=== PATIENT | male | born 1985 | race Caucasian/White ===

== ENCOUNTER 2016-07-09 01:05 | Emergency (ER) | payer BC, OTHER ==
[2016-07-09 01:18] VITALS: BP 118/46
[2016-07-09] MEDS ORDERED: Dicyclomine 10 MG Cap PO ONE (01:19)
--- NOTE | 2016-07-09 02:24 | EDM.PDOC ---
ED HPI GI/ABDOMINAL - General Chief Complaint: Abdominal Pain Stated Complaint: ADBOMAINAL PAIN Time Seen by Provider: 07/09/16 01:17 Source of Information: Reports: Patient History Limitations: Reports: No limitations - History of Present Illness INITIAL COMMENTS - FREE TEXT/NARRATIVE: 31-year-old male presents to the ED with left lower quadrant abdominal pain off and on for the better part of 2 weeks. He states it just worse tonight after going to the ED. We'll the patient is intoxicated by alcohol. States he is rectal pain and discomfort without any bleeding per rectum. Bowel movements have been somewhat painful. No palpable swelling at the rectum. No known hemorrhoids. No nausea or vomiting. No previous abdominal surgery. Symptom Onset Date: 06/07/16 Timing/Duration: Reports: Week(s):, Getting worse (Worse tonight.), Waxing/ waning Location: LLQ Quality: Reports: fullness, stabbing Severity: moderate (Rates it a 5/10.) Improves with: Reports: other Context: Denies: sick contact (Nothing seems to make it better or worse.), bad/ questionable food, out of country travel, recent surgery, recent trauma, lifting , activity/exercise, other Associated Symptoms: Reports: fever/chills, loss of appetite. Denies: denies other symptoms, chest pain, back pain, testicular pain, groin pain, shoulder pain, constipation, diarrhea, bloody stools, nausea/vomiting, other Treatments [employer]: Reports: Other (see below) (None) Social & Family History - Alcohol Use Alcohol Use History: Yes Days Per Week of Alcohol Use: 5 ED ROS GENERAL - Review of Systems Review Of Systems: See Below Constitutional: Denies: fever, chills, malaise, weakness, fatigue, night sweats , diaphoresis, decreased appetite, weight loss, weight gain HEENT: Reports: No symptoms Respiratory: Reports: Cough (Chronic nonproductive cough.). Denies: Shortness of Breath, Wheezing, Pleuritic Chest Pain Cardiovascular: Reports: No symptoms Endocrine: Reports: no symptoms GI/Abdominal: Reports: Abdominal pain (See history of present illness), Other ( Rectal pain without any rectal bleeding.). Denies: Decreased appetite, Flatus, Hematemesis, Hematochezia : Reports: no symptoms Musculoskeletal: Reports: no symptoms Skin: Reports: no symptoms Neurological: Reports: No Symptoms ED EXAM, GI/ABD - Physical Exam Exam: See Below Exam Limited By: Intoxication (He is moderately intoxicated by alcohol.) General Appearance: alert, no apparent distress Eyes: bilateral: nystagmus (Mild bilateral) Throat/Mouth: Normal inspection, Normal lips, Normal teeth, Normal oropharynx, Other Head: atraumatic (Breasts no strongly of alcohol.), normocephalic Neck: normal inspection, supple, non-tender, full range of motion. No: lymphadenopathy (L), lymphadenopathy (R) Respiratory/Chest: no respiratory distress, lungs clear, normal breath sounds, no accessory muscle use, chest non-tender Cardiovascular: normal peripheral pulses, regular rate, rhythm, no edema, no gallop, no murmur GI/Abdominal: normal bowel sounds, soft, tenderness (Over the left lower quadrant in the distribution of the sigmoid colon. Mild guarding. No rebound.). No: McBurney's sign, psoas sign, Rovsing's sign, Orozco's sign, aortic pulsation (Male) Exam: No hernia Back Exam: normal inspection, full range of motion. No: CVA tenderness (L), CVA tenderness (R) Extremities: normal inspection, normal range of motion, non-tender, no pedal edema, normal capillary refill Neurological: alert, oriented, normal cognition Psychiatric: normal affect Skin Exam: Warm, Dry, Intact, Normal color, No rash Course - Vital Signs Last Recorded V/S: Last Vital Signs Temp 36.5 C 07/09/16 01:14 Pulse 88 07/09/16 01:14 Resp 18 07/09/16 01:14 BP 118/46 L 07/09/16 01:14 Pulse Ox 96 07/09/16 01:14 - Orders/Labs/Meds Labs: Laboratory Tests 07/09/16 07/09/16 07/09/16 Range/Units 01:30 01:30 01:45 WBC 5.90 (4.23-9.07) K/mm3 RBC 4.86 (4.63-6.08) M/mm3 Hgb 15.3 (13.7-17.5) gm/L Hct 44.3 (40.1-51.0) % MCV 91.2 (79.0-92.2) fl MCH 31.5 (25.7-32.2) pg MCHC 34.5 (32.2-35.5) g/dl RDW Std Deviation 42.8 (35.1-43.9) fL Plt Count 242 (163-337) K/mm3 MPV 10.3 (9.4-12.3) fl Neutrophils % (Manual) 49 (40-60) % Band Neutrophils % 0 (0-10) % Lymphocytes % (Manual) 45 H (20-40) % Atypical Lymphs % 0 % Monocytes % (Manual) 3 (2-10) % Eosinophils % (Manual) 2 (0.8-7.0) % Basophils % (Manual) 1 (0.2-1.2) Platelet Estimate Adequate Plt Morphology Comment Normal RBC Morph Comment Normal Sodium 142 (136-145) mEq/L Potassium 4.3 (3.5-5.1) mEq/L Chloride 106 (98-107) mEq/L Carbon Dioxide 25 (21-32) mEq/L Anion Gap 15.3 H (5-15) BUN 12 (7-18) mg/dL Creatinine 1.0 (0.7-1.3) mg/dL Est Cr Clr Drug Dosing 98.66 mL/min Estimated GFR (MDRD) > 60 (>60) mL/min BUN/Creatinine Ratio 12.0 L (14-18) Glucose 97 (74-106) mg/dL Calcium 8.6 (8.5-10.1) mg/dL Total Bilirubin 0.2 (0.2-1.0) mg/dL AST 19 (15-37) U/L ALT 33 (16-63) U/L Alkaline Phosphatase 64 (46-116) U/L C-Reactive Protein < 0.2 (<1.0) mg/dL Total Protein 7.7 (6.4-8.2) g/dl Albumin 4.3 (3.4-5.0) g/dl Globulin 3.4 gm/dL Albumin/Globulin Ratio 1.3 (1-2) Lipase 181 (73-393) U/L Urine Color Yellow (Yellow) Urine Appearance Clear (Clear) Urine pH 6.0 (5.0-8.0) Ur Specific [place] 1.010 (1.005-1.030) Urine Protein Negative (Negative) Urine Glucose (UA) Negative (Negative) Urine Ketones Negative (Negative) Urine Occult Blood Negative (Negative) Urine Nitrite Negative (Negative) Urine Bilirubin Negative (Negative) Urine Urobilinogen 0.2 (0.2-1.0) Ur Leukocyte Esterase Negative (Negative) Urine RBC Not seen (0-5) /hpf Urine WBC Not seen (0-5) /hpf Ur Epithelial Cells 0-5 (0-5) /hpf Urine Bacteria Rare (FEW) /hpf Urine Mucus Not seen (FEW) /hpf Urine Yeast Not seen (NOT SEEN) Meds: Medications Discontinued Medications Generic Name Dose Route Start Last Admin Trade Name Cosme PRN Reason Stop Dose Admin Dicyclomine HCl 20 mg 07/09/16 01:19 07/09/16 01:42 Bentyl PO 07/09/16 01:20 20 mg ONETIME ONE Administration Magnesium Citrate 240 ml 07/09/16 02:29 07/09/16 02:30 Citrate Of Magnesia PO 07/09/16 02:30 240 ml ONETIME ONE Administration - Radiology Interpretation Free Text/Narrative:: 31-year-old male presents the ED with diffuse left lower quadrant abdominal pain of 2 weeks' duration. Pain tends to wax and wane characteristic of a colicky component. States his bowel function has been normal without blood. He is also reports rectal pressure discomfort. Without any bleeding. Rates the pain as 5-6/10. Plan IV normal saline at 150 mils per hour. KUB to be done routine labs to be done. - Re-Assessments/Exams Free Text/Narrative Re-Assessment/Exam: 07/09/16 02:15: Labs have returned revealing a normal white count of 5.90 normal differential. Hemoglobin is good platelets normal. Chemistry is completely normal including a lipase of 181. Urinalysis came back negative as well. KUB reveals increased stool throughout the colon particularly in the left hemicolon and rectal vault. Treatment therefore will be Citroma recommended 8 ounces per hour with 4-5 ounces of juice of choice later this morning. This should provide bowel clans relief of abdominal pain. If not he is to return to medical care. Departure - Departure Time of Disposition: 02:28 Disposition: Home, Self-Care 01 Condition: fair Clinical Impression: Abdominal pain Qualifiers: Abdominal location: left lower quadrant Qualified Code(s): R10.32 - Left lower quadrant pain Instructions: Abdominal Pain, Adult, [id number] Referrals: PCP,None [Primary Care Provider] - Forms: ED Department Discharge Additional Instructions: Evaluation in the emergency room tonight in regards to recurrent left lower quadrant abdominal pain off and on for the last 2 weeks. Pain was worse tonight with sharp stabbing crampy pain. No previous abdominal surgery. Work done reveals no signs of any infection of the large bowel or colon. An x-ray of the abdomen reveals increased stool throughout the right hemicolon and into the right hemicolon with a large ball of gas in the left lower quadrant. This is what is causing your pain is causing him intermittent recurrent basis because the bowel is having difficulty emptying L. completely. Stool is not normally formed up on the right side of the abdomen only on the left side. It's not that you have not been moving her bowels regularly but it is back up on you on the right side sometime over the last 3 weeks. Treatment is to take oral Citroma 8 ounces of the 10 ounce bottle that you were provided to the ED tonight. Take this with about 4 ounces of juice mixed in it and directed down fairly promptly it will start to work in one to 2 hours and her bowels will tend to work for 5 times in the loose stool or some diarrhea. He will cleanse the bowel also but it relieves her pain. He may otherwise eat and drink as per normal. Return to medical care if still having abdominal pain after bowel cleanse.
[2016-07-09] MEDS ORDERED: Magnesium Citrate Solution 296 ML Bottle PO ONE (02:29)
--- NOTE | 2016-07-09 17:45 | CR ---
Abdomen: Supine view of the abdomen was obtained. Bowel gas pattern appears within normal limits. Mild scoliosis is noted within the spine. No abnormal calcifications or soft tissue abnormality is identified. Impression: 1. Nothing acute is identified on supine abdominal x-ray. Diagnostic code #2
== END 2016-07-09 02:40 | disposition home or self-care (01) ==
LOC: JD.ED 01:05
DX: R10.32 Left lower quadrant pain (principal)
CPT/HCPCS: 36415; 74000; 80053; 81001; 83690; 85025; 86140; 99284; A9270; 99283

== ENCOUNTER 2017-01-27 23:10 | Emergency (ER) | payer OTHER ==
[2017-01-27] MEDS ORDERED: Lidocaine 1% 10 ML MDV INJECT ONE (23:19)
[2017-01-27 23:22] VITALS: BP 118/80
[2017-01-27] MEDS ORDERED: Diphtheria,Pertussis(Acell),Tetanus Vaccine 0.5 ML SDV IM ONE (23:23)
--- NOTE | 2017-01-27 23:35 | EDM.PDOC ---
ED HPI GENERAL MEDICAL PROBLEM - General Chief Complaint: Laceration Stated Complaint: LACERATION TO CHIN Time Seen by Provider: 01/27/17 23:32 Source of Information: Reports: Patient History Limitations: Reports: No Limitations - History of Present Illness INITIAL COMMENTS - FREE TEXT/NARRATIVE: This is a 31-year-old male. He was drinking some this evening and went outside apparently slipped and fell landing on his jaw and he has a laceration to the jaw area. There was no loss of consciousness he denies any neck pain denies any headache denies any tooth injury and denies any other acute symptoms. He is not up-to-date with his tetanus. He is here for the laceration to be repaired. - Related Data Allergies Allergy/AdvReac Type Severity Reaction Status Date / Time No Known Allergies Allergy Verified 01/27/17 23:19 Home Meds: Home Meds . [No Known Home Meds] 01/27/17 [History] Past Medical History - Past Health History Medical/Surgical History: Denies Medical/Surgical History - Past Surgical History Musculoskeletal Surgical History: Reports: Arthroscopic Knee Social & Family History - Family History Family Medical History: Noncontributory - Tobacco Use Smoking Status *Q: Current Every Day Smoker Years of Tobacco use: 6 Packs/Tins Daily: 0.1 - Caffeine Use Caffeine Use: Reports: None - Alcohol Use Days Per Week of Alcohol Use: 5 - Recreational Drug Use Recreational Drug Use: No ED ROS GENERAL - Review of Systems Review Of Systems: See Below Constitutional: Denies: Fever, Chills HEENT: Reports: Other (As per history of present illness) Respiratory: Reports: No Symptoms Cardiovascular: Reports: No Symptoms Endocrine: Reports: No Symptoms GI/Abdominal: Reports: No Symptoms : Reports: No Symptoms Musculoskeletal: Reports: No Symptoms Skin: Reports: Other (As per history of present illness) Neurological: Reports: No Symptoms Psychiatric: Reports: No Symptoms Hematologic/Lymphatic: Reports: No Symptoms ED EXAM, SKIN/RASH Exam: See Below Exam Limited By: Other (slight alcohol on board) General Appearance: Alert, WD/WN, No Apparent Distress Eye Exam: Bilateral Eye: Normal Inspection Ears: Normal External Exam Nose: Normal Inspection Throat/Mouth: Normal Inspection, Normal Lips, Normal Voice Head: Normocephalic, Other (On his left point of his chin he's got about a centimeter laceration noted that is gapping ) Neck: Normal Inspection, Supple Respiratory/Chest: No Respiratory Distress, Lungs Clear Cardiovascular: Regular Rate, Rhythm, No Murmur Back Exam: Full Range of Motion Extremities: Normal Inspection, Normal Range of Motion Neurological: Alert, Oriented Psychiatric: Normal Affect, Normal Mood Skin: Warm, Dry ED SKIN PROCEDURES - Laceration/Wound Repair Face Lac/Wound length In cm: 1.2 (Left point of chin) Appearance: Subcutaneous Distal NVT: Neuro & Vascular Intact Anesthetic Type: Local Local Anesthesia - Lidocaine (Xylocaine): 1% Plain Local Anesthetic Volume: 4cc Skin Prep: Providone-Iodine (Betadine), Saline Exploration/Debridement/Repair: Wound Explored Closed with: Sutures Suture Size: other (6-0) # of Sutures: 4 Suture Type: Running Drain Placement: No Sterile Dressing Applied: Nurse Tetanus Status Addressed: Yes Complications: No Progress/Comments: Patient tolerated the procedure well Course - Vital Signs Last Recorded V/S: Last Vital Signs Temp 97.9 F 01/27/17 23:19 Pulse 85 01/27/17 23:19 Resp 18 01/27/17 23:19 BP 118/80 01/27/17 23:19 Pulse Ox 97 01/27/17 23:19 - Orders/Labs/Meds Orders: Active Orders 24 hr Category Date Time Status Vaccines to be Administered [RC] PER UNIT ROUTINE Care 01/27/17 23:24 Active Meds: Medications Discontinued Medications Generic Name Dose Route Start Last Admin Trade Name Freq PRN Reason Stop Dose Admin Diphtheria/Tetanus/Acell Pertussis 0.5 ml 01/27/17 23:23 Adacel IM 01/27/17 23:24 .ONCE ONE Lidocaine HCl 10 ml 01/27/17 23:19 Xylocaine 1% INJECT 01/27/17 23:20 ONETIME ONE Departure - Departure Time of Disposition: 23:51 Disposition: Home, Self-Care 01 Condition: Good Clinical Impression: Laceration of chin Qualifiers: Encounter type: initial encounter Qualified Code(s): S01.81XA - Laceration without foreign body of other part of head, initial encounter - Discharge Information Instructions: Laceration Care, Adult, [id number] Referrals: PCP,None [Primary Care Provider] - Forms: ED Department Discharge Additional Instructions: Watch for infection which would be redness swelling or increased drainage, in 7 days come back to the ER or go to the walk-in clinic here at the hospital for suture removal, if there is any problems in the meantime return to the ER - My Orders Last 24 Hours: My Active Orders 01/27/17 23:24 Vaccines to be Administered [RC] PER UNIT ROUTINE - Assessment/Plan Last 24 Hours: My Active Orders 01/27/17 23:24 Vaccines to be Administered [RC] PER UNIT ROUTINE
== END 2017-01-27 23:59 | disposition home or self-care (01) ==
LOC: JD.ED 23:10
DX: S01.81XA Laceration without foreign body of other part of head, initial encounter (principal); F17.210 Nicotine dependence, cigarettes, uncomplicated; Z23 Encounter for immunization; W01.0XXA Fall on same level from slipping, tripping and stumbling without subsequent striking against object, initial encounter
CPT/HCPCS: 12011; 90471; 90715; 99282-25; 99283-25